=== PATIENT | male | born 1980 | race Caucasian/White ===

== ENCOUNTER → 2020-10-12 | Day surgery (SDC) | payer OTHER ==
[~2020-10-12] VITALS: Ht 175.3 cm; Wt 211.0 kg
[~2020-10-12] MED LIST: ATOR20TA PO; IV RINGERS,LACTATED 1000ML 1,000 ML IV ONE; LIDOCAINE 2% PF 5 ML VIAL. ONE; OMEP20TA8 PO; PROPOFOL 10 MG/ML (20ML) VIAL. IV ONE
[2020-10-12 07:36] VITALS: BP 119/79
[2020-10-12 09:28] VITALS: BP 110/77
== END | disposition home or self-care (01) ==
LOC: ENDOS 07:00
PROVIDERS: ATTEND Internal Medicine Gastroenterology
DX: R10.13 Epigastric pain (principal); K21.00 Gastro-esophageal reflux disease with esophagitis, without bleeding; K25.9 Gastric ulcer, unspecified as acute or chronic, without hemorrhage or perforation; K31.89 Other diseases of stomach and duodenum; E78.00 Pure hypercholesterolemia, unspecified; Z90.49 Acquired absence of other specified parts of digestive tract; Z98.890 Other specified postprocedural states; Z79.899 Other long term (current) drug therapy; Z20.822 Contact with and (suspected) exposure to COVID-19
CPT/HCPCS: 43239; 87426; J2704

== ENCOUNTER → 2021-03-01 | Day surgery (SDC) | payer OTHER ==
[~2021-03-01] VITALS: Ht 175.3 cm; Wt 98.0 kg
[~2021-03-01] MED LIST changes: -IV RINGERS,LACTATED 1000ML 1,000 ML IV ONE; +IV RINGERS,LACTATED 1000ML 1,000 ML IV SCH; -LIDOCAINE 2% PF 5 ML VIAL. ONE
[2021-03-01 08:17] VITALS: BP 125/84
[2021-03-01 09:00] VITALS: BP 131/79
--- NOTE | 2021-03-01 13:33 | CONS ---
DATE OF CONSULTATION: 03/01/2021 REASON FOR CONSULTATION: Gastric ulcer followup. HISTORY OF PRESENT ILLNESS: A 40-year-old male with past medical history significant for hyperlipidemia, history of gastric ulcers and GERD, who is seen for interval endoscopy, been on acid suppressive therapy for the past several months at 40 mg daily. EGD to confirm healing is recommended. Denies any abdominal pain at the present time. He has no additional complaints. PAST MEDICAL HISTORY: Gastric ulcers, hyperlipidemia, GERD. ALLERGIES: None. MEDICATIONS: Atorvastatin and omeprazole. FAMILY HISTORY: Significant for diabetes in mother and sister, OK in mother, hypertension in mother and sister, liver disease in father, and CVA in father. SOCIAL HISTORY: He is a former smoker and nondrinker. PAST SURGICAL HISTORY: He is status post vasectomy and cholecystectomy. REVIEW OF SYSTEMS: Per records. PHYSICAL EXAMINATION: GENERAL: Reveals a well-nourished, well-developed male who is alert, cooperative, in no acute distress. VITAL SIGNS: Temperature 97.4, pulse 70, respiratory rate 20. LUNGS: Clear. CARDIOVASCULAR: Reveals an S1, S2, without S3, S4 or appreciable murmur. ABDOMEN: Reveals a soft abdomen, normal bowel sounds, no appreciable hepatosplenomegaly. EXTREMITIES: Reveals no cyanosis, clubbing or edema. IMPRESSION: Gastric ulcers. Interval EGD to confirm healing as 2-4% ulcers are early malignancy is recommended. Risks and benefits of procedure have been discussed with the patient. He is willing to proceed at this time. ZACHARY/LASHON DR: Chay TID: [id number]
== END | disposition home or self-care (01) ==
LOC: ENDOS 07:53
PROVIDERS: ATTEND Internal Medicine Gastroenterology
DX: K25.7 Chronic gastric ulcer without hemorrhage or perforation (principal); K29.50 Unspecified chronic gastritis without bleeding; K21.9 Gastro-esophageal reflux disease without esophagitis; K31.89 Other diseases of stomach and duodenum; E78.00 Pure hypercholesterolemia, unspecified; Z79.899 Other long term (current) drug therapy; Z90.49 Acquired absence of other specified parts of digestive tract; Z98.890 Other specified postprocedural states; Z82.49 Family history of ischemic heart disease and other diseases of the circulatory system; Z83.3 Family history of diabetes mellitus; Z87.891 Personal history of nicotine dependence
CPT/HCPCS: 43235; J2704